=== PATIENT | female | born 1990 | race African-American/Black ===

== ENCOUNTER → 2020-03-15 09:43 | Outpatient (CLI) | payer MEDICAID | END | disposition home or self-care (01) | LOC: D.LAB 09:43 | PROVIDERS: ATTEND Family Medicine | DX: Z11.1 Encounter for screening for respiratory tuberculosis (principal) ==

== ENCOUNTER 2021-01-31 05:13 | Day surgery (SDC) | payer BC ==
[~2021-01-31] VITALS: Ht 180.3 cm; Wt 78.0 kg
[2021-01-31 05:26] LABS: HEMATOCRIT 35.7 % (36.0-48.0); HEMOGLOBIN 11.5 g/dL (12-16); MCH 27.8 pg (26.0-34.0); MCHC 32.2 g/dL (31.0-37.0); MCV 86.2 fL (80.0-100.0); RBC 4.14 10x6/uL (4.00-5.40); RDW 13.3 % (11.5-14.5); WBC 7.9 10x3/uL (4.8-10.8)
[2021-01-31] MEDS ORDERED: VOLTAREN75 MG (06:01)
[2021-01-31] MEDS ORDERED: ADDERALL XR 3030 MG (06:01)
[2021-01-31 06:03] VITALS: BP 117/68; Ht 180.3 cm; Wt 78.0 kg
[2021-01-31 06:16] LABS: HCG SERUM NEGATIVE (NEGATIVE)
--- NOTE | 2021-01-31 09:10 | NUR ---
DISCHARGE INSTRUCTIONS REVIEWED WITH PT AND HER MOTHER ZAINAB. COPY OF DC INSTRUCTIONS PROVIDED ALONG WITH ORIGINAL RX FOR PERCOCET AND MOTRIN. BOTH VOICED UNDERSTANDING.
--- NOTE | 2021-01-31 11:05 | NUR ---
DISCHARGED VIA W/C, ACCOMPANIED BY LAI MOHR, TO V WITH MOTHER DRIVING. ALL BELONGINGS WITH PT/MOTHER.
--- NOTE | 2021-02-02 19:01 | OP ---
PATIENT NAME: NANI PERRY MEDICAL RECORD: [id number] :92 LOCATION:D.OPS ADMISSION DATE: SURGEON: VETO KAHN DO DATE OF OPERATION: 01/31/2021 DATE OF SERVICE: 01/31/2021 PREOPERATIVE DIAGNOSIS: Retained intrauterine device. POSTOPERATIVE DIAGNOSIS: Retained intrauterine device. PRIMARY SURGEON: Veto Kahn DO ANESTHESIA: LMA. PROCEDURE: Operative hysteroscopy with removal of IUD. FINDINGS: Intact ParaGard IUD in the lower uterine segment. Grossly normal uterine cavity and bilateral ostia. friable area at 3 o'clock on cervix. Hysteroscopy performed utilizing the Aveta system. 250 mL deficit at end of case, but suction had not been attached to the bag and this amount of fluid was within the drip bag. SPECIMEN: ParaGard IUD. ESTIMATED BLOOD LOSS: Less than 10 mL. FLUIDS: 600 mL. INFECTION PROPHYLAXIS: 1 gram Ancef. COMPLICATIONS: None. Prior to this procedure, risks of surgery including bleeding, pain, infection, damage to surrounding structures such as the bowel, bladder, neurovascular structures, risk of perforation, VTE, scar tissue were reviewed. Possible risk of hysterectomy if IUD was very embedded and heavy bleeding occured with removal that could not be stopped with normal measures. The patient expressed understanding. Discussed preference that if IUD very embedded and difficult to remove and increased risk of hysterectomy or heavy bleeding to not proceed with removal. All questions answered, consent signed in the office and preoperatively. DESCRIPTION OF PROCEDURE: The patient was taken to the operating room where general anesthesia via LMA was used and found to be adequate. She was prepped and draped in normal sterile fashion in dorsal lithotomy position with Rupert stirrups. Speculum was placed. Anterior lip of the cervix was grasped with a tenaculum. Cervix sequentially dilated to accommodate the Aveta hysteroscope system, primed in normal fashion. Hysteroscope was introduced into the cervix and upon entry into the lower uterine segment, a ParaGard noted to be just slightly embedded on the patient's left side with strings curling up and around to the right side. Rest of the uterus examined and within grossly normal and ostia were noted. Grasper tool inserted and IUD grasped since not OPERATIVE REPORT [id number] NANI PERRY deeply imbedded into the uterine wall also and removed with removal of hysteroscope. Sent to pathology. Grasper tool removed and hysteroscope reentered into the lower uterine segment and area of where IUD was inspected and no heavy bleeding and no deficits in the tissue wall noted. Tenaculum removed. Silver nitrate was placed at the tenaculum site. Some friable area noted about 3 o'clock position on the cervix and silver nitrate applied with still some spotting, so Monsel's solution applied with good hemostasis. Instruments were then removed. The patient was awakened and taken to recovery room in stable condition. All instrument, sponge and needle counts were correct times 2. TRANSINT:[id number] Voice Confirmation ID: [id number] DOCUMENT ID: [id number] VETO KAHN DO at 1901 CC: [id number] DICTATION DATE: 01/31/21 1256 [employer]: 01/31/21 1328 [facility] [place] 01/31/21 [id number] [place] [id number]
== END 2021-01-31 10:58 | disposition home or self-care (01) ==
LOC: D.OPS 05:13
PROVIDERS: Anesthesiology; ATTEND Obstetrics & Gynecology
DX: T83.32XA Displacement of intrauterine contraceptive device, initial encounter (principal); N93.0 Postcoital and contact bleeding

== ENCOUNTER → 2021-02-04 16:11 | Outpatient (CLI) | payer MEDICAID ==
[2021-01-31 06:03] VITALS: BMI 24.0
[~2021-02-04 16:11] MED LIST: ADDERALL XR 3030 MG; VOLTAREN75 MG
== END | disposition home or self-care (01) ==
LOC: D.LAB 16:11
PROVIDERS: ATTEND Family Medicine
DX: Z11.1 Encounter for screening for respiratory tuberculosis (principal)